=== PATIENT | female | born 1995 | race Two or more races ===

== ENCOUNTER 2016-05-26 14:30 | Emergency (ER) | payer OTHER ==
[2016-05-26] MEDS ORDERED: ONDANSETRON 4 MG ORAL DISINTEGRATING TAB (S0181) As Ordered ONE (16:02)
--- NOTE | 2016-05-26 16:10 | EDDOCDS ---
Physician Documentation [facility] Name: Isela Nicholas Age: 20 yrs Sex: Female : 1995 Arrival Date: 05/26/2016 Time: 14:30 Bed Triage 2 Private MD: Other - Complete Info On Cds Disposition: 05/26/16 15:53 Discharged to Home/Self Care. Impression: Nausea and vomiting. - Condition is Stable. - Discharge Instructions: Nausea and Vomiting. - Prescriptions for ZOFRAN ODT 4 mg - dissolve 1 tablet by ORAL route 4 times per day As needed do not chew, do not swallow whole; 10 tablet. - Medication Reconciliation form. - Follow up: Emergency Department; When: As needed. Follow up: Private Physician; When: Call to arrange an appointment; Reason: Wound/Symptom Recheck, Recheck today's complaints, Worsening of conditions, Continuance of care. - Problem is new. - Symptoms are unchanged. Historical: - Allergies: [place] (Rash); Latex (Rash); Diana (Rash); - Home Meds: 1. control pill nightly (Last dose: 05/25/2016) 2. Zyrtec 10 mg oral tab 1 tab nightly as needded (Last dose: Unknown) 3. Vitamin C Oral as needed (Last dose: Unknown) - PMHx: PTSD; Depression; Anxiety; - PSHx: none; - Social history: Smoking status: Patient uses tobacco products, light tobacco smoker. No barriers to communication noted, The patient speaks fluent Khmer. - : The pt / caregiver states he / she is not on anticoagulants. Home medication list is obtained from the patient. - Exposure Risk Screening:: None identified. 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 4 in. (162.56 cm) (R); Pain 4/10; 14:33 Body Mass Index 23.17 (61.23 kg, 162.56 cm) gr2 MDM: 15:52 Ondansetron ODT Oral Disintegrating Tablet 4 mg PO once ordered. cc10 Administered Medications: 16:06 Drug: Ondansetron ODT 4 mg [ondansetron 4 mg disintegrating tablet (1 tabs)] Route: PO; kyra Signatures: Angel Aceves RN RN dwg Jobson, Karen, RN RN kpj Coniski, Colin, AWILDAC PABarbie cc10 MTDD
--- NOTE | 2016-05-26 16:10 | EDDOCDS ---
Nurse's Notes [facility] Name: Isela Nicholas Age: 20 yrs Sex: Female : 1995 Arrival Date: 05/26/2016 Time: 14:30 Bed Triage 2 Private MD: Other - Complete Info On Cds Diagnosis: Nausea and vomiting Presentation: 05/26 14:38 Presenting complaint: Patient states: vomiting since yesterday today emesis brownish kpj red. Epigastric pain. Adult Sepsis Screening: The patient does not have new or worsening altered mentation. Patient's respiratory rate is less than 22. Systolic blood pressure is greater than 100. Patient has a qSOFA score of 0- Negative Sepsis Screen. Suicide/Homicide risk assessment- the patient denies having any suicidal and/or homicidal ideations and does not present with any other emotional, behavioral or mental health complaints. Status: The patient is a dependent. Transition of care: patient was not received from another setting of care. 14:38 Acuity: OJ Level 3 [facility] 14:38 Method Of Arrival: Walkin/Carried/Asstd [facility] Triage Assessment: 14:41 General: Appears well nourished, well groomed, Behavior is appropriate for age, kpj pleasant. Pain: Location: epigastric area Pain currently is 3 out of 10 on a pain scale. Pt Declines HIV testing. Neurological: Level of Consciousness is awake, alert, Oriented to person, place, time. EENT: Oral mucosa is dry. Respiratory: Airway is patent Respiratory effort is even, unlabored, Respiratory pattern is regular, symmetrical. GI: Reports epigastric pain, nausea, vomiting, Pain is 3 out of 10 on a pain scale. Derm: Skin is pink, warm & dry. 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 control pill nightly (Last dose: 05/25/2016) 2. Zyrtec 10 mg oral tab 1 tab nightly as needded (Last dose: Unknown) 3. Vitamin C Oral as needed (Last dose: Unknown) - PMHx: PTSD; Depression; Anxiety; - PSHx: none; - Social history: Smoking status: Patient uses tobacco products, light tobacco smoker. No barriers to communication noted, The patient speaks fluent Portuguese. - : The pt / caregiver states he / she is not on anticoagulants. Home medication list is obtained from the patient. - Exposure Risk Screening:: None identified. Screenin:08 Screening information is obtained from the patient. Fall risk: No risks identified. dwg Assistance ADL's: requires no assistance with activities of daily living. Abuse/DV Screen: The patient / caregiver reports he/she is: not in a situation that causes fear, pain or injury. Nutritional screening: No deficits noted. Advance Directives: Currently, there is no health care proxy. There is no active DNR order. There is no living will. There is no Power of Smelting Engineer. Advance directive information has not previously been placed in an [facility] medical record. Further advance directive information is declined. home support is adequate. Assessment: 16:07 General: Appears in no apparent distress, Behavior is cooperative. Pain: Denies pain. dwg Neurological: Level of Consciousness is awake, alert, Oriented to person, place, time. Respiratory: Airway is patent Respiratory effort is even, unlabored, Respiratory pattern is regular, symmetrical. GI: Bowel sounds present X 4 quads. Vital Signs: 14:33 BP 138 / 79; Pulse 109; Resp 18 S; Temp 99.5(O); Pulse Ox 97% on R/A; Weight 61.23 kg gr2 (R); Height 5 ft. 4 in. (162.56 cm) (R); Pain 4/10; 14:33 Body Mass Index 23.17 (61.23 kg, 162.56 cm) gr2 Vitals: 14:33 Log In Time: May 26, 2016 at 14:33. gr2 ED Course: 14:32 Patient visited by Gabriela Watson. gr2 14:32 Other - Complete Info On Cds is Private Physician. gr2 14:32 Patient moved to Waiting gr2 14:35 Patient visited by Gabriela Watson. gr2 14:35 Patient moved to Pre RCE gr2 14:39 Triage Initiated [facility] 14:53 Patient moved to Triage 2 [facility] 15:31 Willam Cash PA-C [facility] cc10 15:31 Carli Wiggins MD is Attending Physician. cc10 15:47 Patient visited by Willam Cash PA-C. cc10 15:47 Patient visited by Willam Cash PA-C. cc10 16:08 The patient / caregiver is instructed regarding the plan of care and ED course. dwg Administered Medications: 16:06 Drug: Ondansetron ODT 4 mg [ondansetron 4 mg disintegrating tablet (1 tabs)] Route: PO; dwg Order Results: There are currently no results for this order. Outcome: 15:53 Discharge ordered by Provider. cc10 16:08 Patient left the ED. dwg Signatures: Angel Aceves RN RN Aleshia Boston RN RN Rita BrennanRN RN [facility] Gabriela Watson gr2 Willam Cash PA-C PA-C cc10 MTDD
--- NOTE | 2016-05-28 17:09 | EDDOCDS ---
Physician Documentation [facility] Name: Isela Nicholas Age: 20 yrs Sex: Female : 1995 Arrival Date: 05/26/2016 Time: 14:30 Bed Triage 2 Private MD: Other - Complete Info On Cds Disposition: 05/26/16 15:53 Discharged to Home/Self Care. Impression: Nausea and vomiting. - Condition is Stable. - Discharge Instructions: Nausea and Vomiting. - Prescriptions for ZOFRAN ODT 4 mg - dissolve 1 tablet by ORAL route 4 times per day As needed do not chew, do not swallow whole; 10 tablet. - Medication Reconciliation form. - Follow up: Emergency Department; When: As needed. Follow up: Private Physician; When: Call to arrange an appointment; Reason: Wound/Symptom Recheck, Recheck today's complaints, Worsening of conditions, Continuance of care. - Problem is new. - Symptoms are unchanged. Historical: - Allergies: [place] (Rash); Latex (Rash); Diana (Rash); - Home Meds: 1. control pill nightly (Last dose: 05/25/2016) 2. Zyrtec 10 mg oral tab 1 tab nightly as needded (Last dose: Unknown) 3. Vitamin C Oral as needed (Last dose: Unknown) - PMHx: PTSD; Depression; Anxiety; - PSHx: none; - Social history: Smoking status: Patient uses tobacco products, light tobacco smoker. No barriers to communication noted, The patient speaks fluent [place]. - : The pt / caregiver states he / she is not on anticoagulants. Home medication list is obtained from the patient. - Exposure Risk Screening:: None identified. 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 4 in. (162.56 cm) (R); Pain 4/10; 14:33 Body Mass Index 23.17 (61.23 kg, 162.56 cm) gr2 MDM: 15:52 Ondansetron ODT Oral Disintegrating Tablet 4 mg PO once ordered. cc10 05/27 09:36 T-Sheet-- Draft Copy was scanned into [employer] and attached to record. gb Administered Medications: 05/26 16:06 Drug: Ondansetron ODT 4 mg [ondansetron 4 mg disintegrating tablet (1 tabs)] Route: PO; dwg Signatures: Angel Aceves RN RN dwg Jobson, Karen, RN RN kpMesha Woodson, Jorge Reg Willam Chapin PA-C PABarbie cc10 The chart was reviewed and I authenticate all verbal orders and agree with the evaluation and treatment provided.Attachments: 05/27 09:36 T-Sheet-- Draft Copy gb Chart Complete MTDD
--- NOTE | 2016-05-28 17:09 | EDDOCDS ---
Nurse's Notes [facility] Name: Isela Nicholas Age: 20 yrs Sex: Female : 1995 Arrival Date: 05/26/2016 Time: 14:30 Bed Triage 2 Private MD: Other - Complete Info On Cds Diagnosis: Nausea and vomiting Presentation: 05/26 14:38 Presenting complaint: Patient states: vomiting since yesterday today emesis brownish kpj red. Epigastric pain. Adult Sepsis Screening: The patient does not have new or worsening altered mentation. Patient's respiratory rate is less than 22. Systolic blood pressure is greater than 100. Patient has a qSOFA score of 0- Negative Sepsis Screen. Suicide/Homicide risk assessment- the patient denies having any suicidal and/or homicidal ideations and does not present with any other emotional, behavioral or mental health complaints. Status: The patient is a dependent. Transition of care: patient was not received from another setting of care. 14:38 Acuity: OJ Level 3 [facility] 14:38 Method Of Arrival: Walkin/Carried/Asstd [facility] Triage Assessment: 14:41 General: Appears well nourished, well groomed, Behavior is appropriate for age, kpj pleasant. Pain: Location: epigastric area Pain currently is 3 out of 10 on a pain scale. Pt Declines HIV testing. Neurological: Level of Consciousness is awake, alert, Oriented to person, place, time. EENT: Oral mucosa is dry. Respiratory: Airway is patent Respiratory effort is even, unlabored, Respiratory pattern is regular, symmetrical. GI: Reports epigastric pain, nausea, vomiting, Pain is 3 out of 10 on a pain scale. Derm: Skin is pink, warm & dry. 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 control pill nightly (Last dose: 05/25/2016) 2. Zyrtec 10 mg oral tab 1 tab nightly as needded (Last dose: Unknown) 3. Vitamin C Oral as needed (Last dose: Unknown) - PMHx: PTSD; Depression; Anxiety; - PSHx: none; - Social history: Smoking status: Patient uses tobacco products, light tobacco smoker. No barriers to communication noted, The patient speaks fluent Togolese. - : The pt / caregiver states he / she is not on anticoagulants. Home medication list is obtained from the patient. - Exposure Risk Screening:: None identified. Screenin:08 Screening information is obtained from the patient. Fall risk: No risks identified. dwg Assistance ADL's: requires no assistance with activities of daily living. Abuse/DV Screen: The patient / caregiver reports he/she is: not in a situation that causes fear, pain or injury. Nutritional screening: No deficits noted. Advance Directives: Currently, there is no health care proxy. There is no active DNR order. There is no living will. There is no Power of Yarder Engineer. Advance directive information has not previously been placed in an [facility] medical record. Further advance directive information is declined. home support is adequate. Assessment: 16:07 General: Appears in no apparent distress, Behavior is cooperative. Pain: Denies pain. dwg Neurological: Level of Consciousness is awake, alert, Oriented to person, place, time. Respiratory: Airway is patent Respiratory effort is even, unlabored, Respiratory pattern is regular, symmetrical. GI: Bowel sounds present X 4 quads. Vital Signs: 14:33 BP 138 / 79; Pulse 109; Resp 18 S; Temp 99.5(O); Pulse Ox 97% on R/A; Weight 61.23 kg gr2 (R); Height 5 ft. 4 in. (162.56 cm) (R); Pain 4/10; 14:33 Body Mass Index 23.17 (61.23 kg, 162.56 cm) gr2 Vitals: 14:33 Log In Time: May 26, 2016 at 14:33. gr2 ED Course: 14:32 Patient visited by Gabriela Watson. gr2 14:32 Other - Complete Info On Cds is Private Physician. gr2 14:32 Patient moved to Waiting gr2 14:35 Patient visited by Gabriela Watson. gr2 14:35 Patient moved to Pre RCE gr2 14:39 Triage Initiated [facility] 14:53 Patient moved to Triage 2 [facility] 15:31 [facility] cc[facility] 15:31 Carli Wiggins MD is Attending Physician. cc10 15:47 Patient visited by Willam Cash PA-C. cc10 15:47 Patient visited by Willam Cash PA-C. cc10 16:08 The patient / caregiver is instructed regarding the plan of care and ED course. dwg 16:12 Patient name changed from Isela\S\\S\Cristopher\S\ to Isela\S\ \S\Cristopher. EDMS 05/27 09:36 T-Sheet-- Draft Copy was scanned into [employer] and attached to record. gb Administered Medications: 05/26 16:06 Drug: Ondansetron ODT 4 mg [ondansetron 4 mg disintegrating tablet (1 tabs)] Route: PO; dwg Order Results: There are currently no results for this order. Outcome: 15:53 Discharge ordered by Provider. cc10 16:08 Patient left the ED. dwg Signatures: Dispatcher [employer] EDCO Angel Aceves RN Aleshia Trevizo RN RN Mesha Woodson, Jorge Reg Rita SnyderRN RN [facility] Gabriela Watson gr2 Willam Cash PA-C PA-C cc10 Chart Complete MTDD
--- NOTE | 2016-05-28 17:09 | EDDOCDS ---
Physician Documentation [facility] Name: Isela Nicholas Age: 20 yrs Sex: Female : 1995 Arrival Date: 05/26/2016 Time: 14:30 Bed Triage 2 Private MD: Other - Complete Info On Cds Disposition: 05/26/16 15:53 Discharged to Home/Self Care. Impression: Nausea and vomiting. - Condition is Stable. - Discharge Instructions: Nausea and Vomiting. - Prescriptions for ZOFRAN ODT 4 mg - dissolve 1 tablet by ORAL route 4 times per day As needed do not chew, do not swallow whole; 10 tablet. - Medication Reconciliation form. - Follow up: Emergency Department; When: As needed. Follow up: Private Physician; When: Call to arrange an appointment; Reason: Wound/Symptom Recheck, Recheck today's complaints, Worsening of conditions, Continuance of care. - Problem is new. - Symptoms are unchanged. Historical: - Allergies: [place] (Rash); Latex (Rash); Diana (Rash); - Home Meds: 1. control pill nightly (Last dose: 05/25/2016) 2. Zyrtec 10 mg oral tab 1 tab nightly as needded (Last dose: Unknown) 3. Vitamin C Oral as needed (Last dose: Unknown) - PMHx: PTSD; Depression; Anxiety; - PSHx: none; - Social history: Smoking status: Patient uses tobacco products, light tobacco smoker. No barriers to communication noted, The patient speaks fluent Hebrew. - : The pt / caregiver states he / she is not on anticoagulants. Home medication list is obtained from the patient. - Exposure Risk Screening:: None identified. 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 4 in. (162.56 cm) (R); Pain 4/10; 14:33 Body Mass Index 23.17 (61.23 kg, 162.56 cm) gr2 MDM: 15:52 Ondansetron ODT Oral Disintegrating Tablet 4 mg PO once ordered. cc10 05/27 09:36 T-Sheet-- Draft Copy was scanned into [employer] and attached to record. gb Administered Medications: 05/26 16:06 Drug: Ondansetron ODT 4 mg [ondansetron 4 mg disintegrating tablet (1 tabs)] Route: PO; dwg Signatures: Angel Aceves RN RN dwg Jobson, Karen, RN RN kpMesha Woodson, Jorge Reg Willam Chapin PA-C PABarbie cc10 The chart was reviewed and I authenticate all verbal orders and agree with the evaluation and treatment provided.Attachments: 05/27 09:36 T-Sheet-- Draft Copy gb Chart Complete MTDD
== END 2016-05-26 16:08 | disposition home or self-care (01) ==
LOC: M ED 14:30
DX: R11.2 Nausea with vomiting, unspecified (principal); F32.9 Major depressive disorder, single episode, unspecified; F41.9 Anxiety disorder, unspecified; F43.10 Post-traumatic stress disorder, unspecified; Z79.3 Long term (current) use of hormonal contraceptives; Z91.040 Latex allergy status; Z91.09 Other allergy status, other than to drugs and biological substances; Z91.018 Allergy to other foods; F17.210 Nicotine dependence, cigarettes, uncomplicated